=== PATIENT | female | born 1975 | race Two or more races ===

== ENCOUNTER 2018-05-01 13:22 | Emergency (ER) | payer BC, MEDICAID ==
[~2018-05-01] VITALS: Ht 167.6 cm; Wt 65.8 kg
[2018-05-01 14:00] VITALS: BP 121/79
[2018-05-01] MEDS ORDERED: LORazepam 1mg tab ORAL ONE ×2 (14:45→16:30)
[2018-05-01 14:50] LABS: APPEARANCE,URINE CLEAR; BASOPHILS % (AUTO) 1.3 % (0.0-2.0); BILIRUBIN, URINE NEGATIVE (NEGATIVE); COLOR,URINE PALE YELLOW; GLUCOSE, URINE (UA) NEGATIVE (NEGATIVE); HEMATOCRIT 43.6 % (37.0-47.0); HEMOGLOBIN 13.8 G/DL (12.0-16.0); KETONES,URINE 4+ (NEGATIVE); LEUKOCYTE ESTERASE ,URINE 1+ (NEGATIVE); LYMPHOCYTES % (AUTO) 12.2 % (20.0-45.0); MEAN CORPUSCULAR VOLUME 90 FL (80-99); MONOCYTES % (AUTO) 5.6 % (1.0-10.0); NEUTROPHILS % (AUTO) 80.9 % (45.0-75.0); NITRITE,URINE NEGATIVE (NEGATIVE); PH,URINE 5 (4.5-8.0); PLATELET COUNT 591 K/UL (150-450); PROTEIN,URINE 2+ (NEGATIVE); RED BLOOD COUNT 4.84 M/UL (4.20-5.40); RED CELL DISTRIBUTION WIDTH 12.8 % (11.6-14.8); UROBILINOGEN,URINE NORMAL MG/DL (0.0-1.0); WHITE BLOOD COUNT 12.7 K/UL (4.8-10.8)
[2018-05-01 15:03] LABS: ANION GAP 20 mmol/L (5-15); BLOOD UREA NITROGEN 8 mg/dL (7-18); CALCIUM 9.3 MG/DL (8.5-10.1); CARBON DIOXIDE 17 MMOL/L (21-32); CHLORIDE 100 MMOL/L (98-107); CREATININE 0.9 MG/DL (0.55-1.30); POTASSIUM 4.2 MMOL/L (3.5-5.1); SODIUM 137 MMOL/L (136-145)
[2018-05-01 15:08] LABS: ALANINE AMINOTRANSFERASE 13 U/L (12-78); ALBUMIN 3.4 G/DL (3.4-5.0); ALBUMIN/GLOBULIN RATIO 0.7 (1.0-2.7); ALKALINE PHOSPHATASE 55 U/L (46-116); ASPARTATE AMINO TRANSFERASE 19 U/L (15-37); BILIRUBIN,TOTAL 0.5 MG/DL (0.2-1.0)
[2018-05-01] MEDS ORDERED: Isovue-300 100ml vial INJ PRN (15:45)
[2018-05-01] MEDS ORDERED: ZOFRAN4 M1 ORAL (17:56)
[2018-05-01] MEDS ORDERED: COLACE100 MG ORAL (17:56)
--- NOTE | 2018-05-01 17:56 | Emergency Room Report ---
History of Present Illness General Chief Complaint: Constipation Source: Patient Present Illness HPI patient is a 6-year-old female with history of opioid overuse here complaining of 2 weeks of constipation not being able to pass gas. Patient claims that she went to an urgent care a few days ago was given MiraLAX and started vomiting after taking it and she went to the [facility] facility yesterday and was assisted out of her bowel movements are clear fluid overload with nasal symmetric bowel movement. She reports intermittent palate-like bowel movements in the past 2 weeks no blood noted. Abdomen is distended. She denies fever and chills shortness of breath chest pain. Denies history of drinking. Patient later mentions that she has had abnormal Pap smears in the past has not been able to have a period in the patient for months. Patient has had colposcopy done in the past negative results. Denies recent travel and denies use of any other medication other than norco. Allergies: Coded Allergies: No Known Allergies (Unverified , 05/01/18) Patient History Past Medical History: see triage record Past Surgical History: none Last Menstrual Period: 03/10/18 Now: No Immunizations: UTD Reviewed Nursing Documentation: PMH: Agreed; PSxH: Agreed Nursing Documentation-PMH Past Medical History: No History, Except For Review of Systems All Other Systems: negative except mentioned in HPI Physical Exam Vital Signs Date Time Temp Pulse Resp B/P (MAP) Pulse Ox O2 Delivery O2 Flow Rate FiO2 05/01/18 13:41 98.2 96 18 118/81 96 Room Air 98.2 Sp02 EP Interpretation: reviewed, normal General Appearance: normal inspection, well appearing, alert, GCS 15 Head: normocephalic Eyes: bilateral eye normal inspection, bilateral eye PERRL ENT: normal ENT inspection Neck: normal inspection, supple Respiratory: normal inspection, chest non-tender, no rhonchi, no wheezing Cardiovascular #1: normal inspection, no edema, no murmur Gastrointestinal: no guarding, no pulsatile mass, no rebound, abnormal bowel sounds, distended Rectal: hemorrhoids - external nonthrombosed Genitourinary: no CVA tenderness Musculoskeletal: normal inspection, back normal Neurologic: normal inspection, alert, oriented x3 Psychiatric: normal inspection, judgement/insight normal, memory normal Skin: normal inspection, normal color, no rash Lymphatic: normal inspection, no adenopathy Medical Decision Making PA Attestation diagnosis and treatment plans were reviewed and discussed my supervising, physician Dr. Corcoran Diagnostic Impression: Primary Impression: Constipation Additional Impression: Uterine mass ER Course patient is a 6-year-old female with history of opioid overuse here complaining of 2 weeks of constipation not being able to pass gas. Patient claims that she went to an urgent care a few days ago was given MiraLAX and started vomiting after taking it and she went to the [facility] facility yesterday and was assisted out of her bowel movements are clear fluid overload with nasal symmetric bowel movement. She reports intermittent palate-like bowel movements in the past 2 weeks no blood noted. Abdomen is distended. She denies fever and chills shortness of breath chest pain. Denies history of drinking. Patient later mentions that she has had abnormal Pap smears in the past has not been able to have a period in the patient for months. Patient has had colposcopy done in the past negative results. Denies recent travel and denies use of any other medication other than norco. Ddx considered but are not limited to Constipation, ascites,uterine mass Vital signs: are WNL, pt. is afebrile H&PE are most consistent with uterine mass ORDERS abdominal ultrasound, abdominal CT with contrast, UA urine test , lipase, CBC, CMP, Ativan night monitor ED INTERVENTIONS: ativan DISCHARGE: At this time pt. is stable for d/c to home. Will provide printed patient care instructions, and any necessary prescriptions. Care plan and follow up instructions have been discussed with the patient prior to discharge. patient to follow-up with primary care provider due to abnormal results of the abdominal ultrasound and abdominal CT white count is 12.7, platelets 500, anion gap elevated as CT/MRI/US Diagnostic Results CT/MRI/US Diagnostic Results : Imaging Test Ordered: abdominal ultrasound, abdominal CT with contrast Impression CT ABDOMEN & PELVIS With Contrast: Large amount of fluid in the peritoneal cavity and omental caking. Findings suggest peritoneal carcinomatosis. Numerous pelvic mass lesions. Consider gynecological tumor primary. Complex fibroid uterus. Can't exclude subtle poorly defined lesion in the liver. 16 mm lesion in the spleen. Nonspecific thickening in the colon. Appendix not identified. US: ascites noted Last Vital Signs Date Time Temp Pulse Resp B/P (MAP) Pulse Ox O2 Delivery O2 Flow Rate FiO2 05/01/18 14:00 98.2 87 18 121/79 98 Room Air 98.2 Disposition: HOME, SELF-CARE Condition: Stable Scripts Lorazepam* (ATIVAN*) 0.5 Mg Tablet 0.5 MG ORAL THREE TIMES A DAY, #10 TAB Prov: Naveen Corcoran MD 05/01/18 Docusate Sodium* (COLACE*) 100 Mg Capsule 100 MG ORAL DAILY, #20 CAP Prov: Silvano Brumfield 05/01/18 Ondansetron (Zofran) 4 Mg Tablet 4 MG ORAL Q6H PRN for Nausea & Vomiting, #20 TAB Prov: Silvano Brumfield 05/01/18 Referrals: NOT CHOSEN IPA/,REFERRING (PCP) Patient Instructions: Constipation, Adult, Pelvic Mass Additional Instructions: information of some resources and centers to further look into the mass in the uterus and further workup pelvic assessment has been given to patient constipation most likely secondary to the mass observed in the uterus Silvano Brumfield May 01, 2018 17:56
[2018-05-01] MEDS ORDERED: ATIVAN0.5 MG ORAL (18:06)
[2018-05-01 18:30] VITALS: BP 124/85
--- NOTE | 2018-05-02 09:57 | Diagnostic Imaging Report ---
Indication: Abdominal pain Technique: CT of the abdomen and pelvis utilizing automated exposure control with intravenous contrast. Venous scanning performed. Axial, sagittal and coronal reformats presented. CT dose: Total DLP 738.28 mGycm; CTDI vol 13.45 mGy Comparison: No prior CT available for comparison. Correlation made to concurrent abdominal sonogram. Findings: Bilateral breast implants partially visualized. Imaged lung bases are without focal airspace consolidation, pleural effusion or pneumothorax. Heart size within normal limits. No pericardial effusion. Evaluation limited due to lack of enteric contrast. There is a large amount of abdominal pelvic ascites with suggestion of omental caking. There are heterogeneous mass lesions in the pelvis, with the largest apparent lesion measuring approximately 7.8 cm transverse by 5 cm AP (image #70). These findings are concerning for gynecologic malignancy. The uterus is lobular in contour, possibly related to fibroids although additional etiologies not excluded. There is a approximately 1.6 cm low-attenuation lesion in the region of the splenic hilum (image #20). This may have some peripheral enhancement. The possibility of a mass/metastasis cannot be excluded. A similar-appearing lesion is noted more inferiorly in the spleen on images #25 and 26. Cannot exclude a poorly defined lesion in segment IV of the liver where there is some nodularity of the liver contour (image #13). Appendix is not visualized. There is nonspecific thickening of the colon which may be related to ascites. There is no free intraperitoneal air. Kidneys enhance symmetrically. No hydronephrosis. Bladder not well evaluated. Abdominal aorta appears normal in caliber. No acute osseous abnormality identified. No focal lytic or bony lesion appreciated. . IMPRESSION: Heterogeneous pelvic masses with large amount of abdominopelvic ascites and suggestion of omental caking. Findings are concerning for a gynecologic malignancy. Clinical correlation recommended. Further evaluation with pelvic ultrasound or MRI can be obtained as clinically indicated. Nonspecific low-attenuation splenic lesions. Cannot exclude subtle poorly defined lesion in the liver. Consider better characterization with dynamic multiphase contrast-enhanced CT or MRI of the abdomen. Nonspecific colonic thickening, possibly related to ascites. Correlate clinically. No evidence of free intraperitoneal air. Findings corresponds with the [facility]rad preliminary report. The CT scanner at [facility] is accredited by the [employer] and the scans are performed using protocols designed to limit radiation exposure to as low as reasonably achievable to attain images of sufficient resolution adequate for diagnostic evaluation.
--- NOTE | 2018-05-02 10:11 | Diagnostic Imaging Report ---
Indication: Abdominal pain and tenderness Technique: Multiplanar grayscale imaging of the abdomen. Duplex Doppler imaging was also performed. Comparison: None Findings: There is moderate to large amount of abdominal ascites. Liver is normal in size, the right lobe measuring approximately 14 cm in length. Echogenicity is somewhat heterogeneous. No focal hepatic mass lesion is appreciated sonographically. The portal vein appears patent on color Doppler. No gallstones or gallbladder wall thickening. Sonographic Dodd sign reported as negative. No intrahepatic or extra hepatic biliary ductal dilatation. Common bile duct measures 3.3 mm diameter. The kidneys are symmetric in size. No focal renal lesions appreciated sonographically. Normal color flow to the bilateral kidneys noted. No hydronephrosis or sonographically appreciable renal stones. There is questionable increased echogenicity of the right kidney although this may be artifactual. Left kidney appears normal in echogenicity. Imaged portions of the pancreas are grossly unremarkable. Spleen is normal in size. No focal splenic lesion is appreciated sonographically. Imaged portions of the abdominal aorta and IVC normal in caliber. IMPRESSION: Moderate to large amount of abdominal ascites. Questionable increased echogenicity of the right kidney, likely artifactual. Correlate for medical renal disease. No evidence of hydronephrosis or sonographically appreciable stone. No cholelithiasis or sonographic evidence to suggest acute cholecystitis.
== END 2018-05-01 18:30 | disposition home or self-care (01) ==
LOC: EMR 15:45
DX: K59.00 Constipation, unspecified (principal); R19.09 Other intra-abdominal and pelvic swelling, mass and lump; R18.8 Other ascites; D25.9 Leiomyoma of uterus, unspecified
CPT/HCPCS: 36415; 74177; 76700; 80053; 80307; 81001; 81025; 83690; 85025; 99284; Q9967

== ENCOUNTER 2018-05-06 20:37 | Emergency (ER) | payer BC, MEDICAID ==
[~2018-05-06] VITALS: Ht 167.6 cm; Wt 64.0 kg
[~2018-05-06 20:37] MED LIST: ATIVAN0.5 MG ORAL; COLACE100 MG ORAL; ZOFRAN4 M1 ORAL
[2018-05-06] MEDS ORDERED: OXYCODONE HCL5 M2 ORAL (20:55)
[2018-05-06] MEDS ORDERED: OMEPRAZOLE20 M2 ORAL (20:55)
--- NOTE | 2018-05-06 21:11 | Emergency Room Report ---
History of Present Illness General Chief Complaint: Abnormal Labs Source: Patient Present Illness HPI Is a 42-year-old female with newly diagnosed ovarian cancer. She has not started chemotherapy yet. No surgery yet. She had recent blood work done and was told by her oncologist to have her potassium rechecked. She was told that potassium was 5.9. Rest of the labs are normal. She was here last week and had normal blood tests also. She denies any new complaint. No nausea no vomiting. No fever chills which is generalize weakness. This is unchanged. Allergies: Coded Allergies: No Known Allergies (Unverified , 05/01/18) Patient History Past Medical History: see triage record, old chart reviewed Past Surgical History: other Pertinent Family History: none Social History: Denies: smoking Now: No Immunizations: other Reviewed Nursing Documentation: PMH: Agreed; PSxH: Agreed Nursing Documentation-PMH Past Medical History: No History, Except For Hx Cancer: Yes - ovarian CA Review of Systems Eye: Denies: eye pain, blurred vision ENT: Denies: ear pain, nose congestion, throat swelling Respiratory: Denies: cough, shortness of breath Cardiovascular: Denies: chest pain, palpitations Gastrointestinal: Denies: abdominal pain, diarrhea, nausea, vomiting Musculoskeletal: Denies: back pain, joint pain Skin: Denies: rash Neurological: Denies: headache, numbness Endocrine: Denies: increased thirst, increased urine Hematologic/Lymphatic: Denies: easy bruising All Other Systems: negative except mentioned in HPI Physical Exam Vital Signs Date Time Temp Pulse Resp B/P (MAP) Pulse Ox O2 Delivery O2 Flow Rate FiO2 05/06/18 20:49 97.8 71 17 99/72 98 Room Air 97.9 vitals normal Sp02 EP Interpretation: reviewed, normal General Appearance: well appearing, no apparent distress, alert Head: normocephalic, atraumatic Eyes: bilateral eye PERRL, bilateral eye EOMI ENT: hearing grossly normal, normal pharynx Neck: full range of motion, supple, no meningismus Respiratory: chest non-tender, lungs clear, normal breath sounds Cardiovascular #1: regular rate, rhythm, no murmur Gastrointestinal: normal bowel sounds, non tender, no mass, no organomegaly, no bruit, non-distended Musculoskeletal: back normal, gait/station normal, normal range of motion Psychiatric: mood/affect normal Skin: warm/dry Medical Decision Making Diagnostic Impression: Primary Impression: Abnormal laboratory test result ER Course Patient with an abnormal potassium from an outside blood draw. This is most likely hemolyzed specimen since last week and was normal. Repeat level is normal here. We'll discharge home. Patient reassured. Last Vital Signs Date Time Temp Pulse Resp B/P (MAP) Pulse Ox O2 Delivery O2 Flow Rate FiO2 05/06/18 20:49 97.8 71 17 99/72 98 Room Air 97.9 Status: improved Disposition: HOME, SELF-CARE Condition: Stable Additional Instructions: Follow-up with your oncologist as scheduled. Return for any concern. LILA DUNBAR M.D. May 06, 2018 21:11
[2018-05-06 21:35] LABS: ANION GAP 6 mmol/L (5-15); BLOOD UREA NITROGEN 10 mg/dL (7-18); CALCIUM 8.5 MG/DL (8.5-10.1); CARBON DIOXIDE 30 MMOL/L (21-32); CHLORIDE 100 MMOL/L (98-107); CREATININE 0.7 MG/DL (0.55-1.30); SODIUM 136 MMOL/L (136-145)
[2018-05-06 21:37] VITALS: BP 99/72
[2018-05-06 21:55] VITALS: BP 99/72
== END 2018-05-06 21:55 | disposition home or self-care (01) ==
LOC: EMR 21:06
DX: E87.6 Hypokalemia (principal); C56.9 Malignant neoplasm of unspecified ovary
CPT/HCPCS: 36415; 80048; 99283